=== PATIENT | female | born 1950 | race Two or more races ===

== ENCOUNTER 2017-09-01 10:34 | Emergency (ER) | payer OTHER ==
[~2017-09-01] VITALS: Ht 160 cm; Wt 83.0 kg
[~2017-09-01 10:34] MED LIST: CALTRATE-600/VI1 TA1; PHENABID D1 TAB.SR .; SIMVASTATIN40 MG; VITAMIN D50000 UNIT
[2017-09-01] MEDS ORDERED: NABUMETONE750 MG PO (15:20)
[2017-09-01] MEDS ORDERED: NORFLEX100MG PO (15:20)
== END 2017-09-01 15:36 | disposition home or self-care (01) ==
LOC: ER 10:34
DX: M79.662 Pain in left lower leg (principal); M25.562 Pain in left knee; M54.5 Low back pain

== ENCOUNTER → 2019-01-02 | Emergency (ER) | payer OTHER ==
[~2019-01-02] VITALS: Ht 160 cm; Wt 83.9 kg
[~2019-01-02] MED LIST changes: +NABUMETONE750 MG PO; +NORFLEX100MG; +NORFLEX100MG PO
== END | disposition home or self-care (01) ==
LOC: ER 15:05
DX: M54.89 Other dorsalgia (principal); M54.2 Cervicalgia

== ENCOUNTER 2020-01-13 10:23 | Emergency (ER) | payer OTHER ==
[~2020-01-13] VITALS: Ht 160 cm; Wt 85.7 kg
== END 2020-01-13 13:15 | disposition home or self-care (01) ==
LOC: ER 10:23
DX: M54.5 Low back pain (principal); M25.551 Pain in right hip

== ENCOUNTER 2020-11-10 08:50 | Emergency (ER) | payer OTHER ==
[~2020-11-10] VITALS: Ht 162.6 cm; Wt 81.6 kg
[2020-11-10] MEDS ORDERED: CIPRO500 MG PO (14:25)
[2020-11-10] MEDS ORDERED: NORFLEX100MG PO (14:25)
[2020-11-10] MEDS ORDERED: KETO10TA2 PO (14:25)
== END 2020-11-10 14:37 | disposition home or self-care (01) ==
LOC: ER 08:50
DX: B34.9 Viral infection, unspecified (principal); M54.5 Low back pain; M54.2 Cervicalgia; R07.89 Other chest pain; F41.8 Other specified anxiety disorders; Z20.822 Contact with and (suspected) exposure to COVID-19

== ENCOUNTER 2021-01-15 23:12 | Emergency (ER) | payer OTHER ==
[~2021-01-15] VITALS: Ht 160 cm; Wt 83.9 kg
[~2021-01-15 23:12] MED LIST changes: +CIPRO500 MG PO; +KETO10TA2 PO
== END 2021-01-16 02:38 | disposition home or self-care (01) ==
LOC: ER 23:12
DX: K08.89 Other specified disorders of teeth and supporting structures (principal)

== ENCOUNTER 2021-08-26 14:54 | Emergency (ER) | payer OTHER ==
[~2021-08-26] VITALS: Ht 162.6 cm; Wt 79.4 kg
[2021-08-26] MEDS ORDERED: SERTRALINE HCL50 MG PO (15:23)
[2021-08-26] MEDS ORDERED: ALPRAZOLAM0.5 MG PO (15:23)
[2021-08-26] MEDS ORDERED: ATORVASTATIN CA20 MG PO (15:23)
[2021-08-26] MEDS ORDERED: LEVOTHYROXINE25 MC1 PO (15:23)
[2021-08-26] MEDS ORDERED: ORPHENADRINE C100 MG PO (20:38)
[2021-08-26] MEDS ORDERED: DICLOFENAC POTA50 MG PO (20:38)
== END 2021-08-26 20:48 | disposition home or self-care (01) ==
LOC: ER 14:54
DX: M54.12 Radiculopathy, cervical region (principal); M25.511 Pain in right shoulder

== ENCOUNTER 2022-03-26 12:36 | Emergency (ER) | payer OTHER ==
[~2022-03-26] VITALS: Ht 160 cm; Wt 79.4 kg
[~2022-03-26 12:36] MED LIST changes: +ALPRAZOLAM0.5 MG PO; +ATORVASTATIN CA20 MG PO; +DICLOFENAC POTA50 MG PO; +LEVOTHYROXINE25 MC1 PO; +ORPHENADRINE C100 MG PO; +SERTRALINE HCL50 MG PO
== END 2022-03-26 16:53 | disposition home or self-care (01) ==
LOC: ER 12:36
DX: L02.411 Cutaneous abscess of right axilla (principal); Z88.0 Allergy status to penicillin; I10 Essential (primary) hypertension

== ENCOUNTER 2023-01-03 08:34 | Emergency (ER) | payer OTHER ==
[~2023-01-03] VITALS: Ht 162.6 cm; Wt 81.6 kg
[2023-01-03] MEDS ORDERED: ATORVASTATIN CA20 MG PO (08:55)
== END 2023-01-03 12:28 | disposition home or self-care (01) ==
LOC: ER 08:34
DX: B34.9 Viral infection, unspecified (principal); Z88.0 Allergy status to penicillin; E78.49 Other hyperlipidemia; M79.7 Fibromyalgia; Z20.822 Contact with and (suspected) exposure to COVID-19

== ENCOUNTER 2023-01-21 12:40 | Emergency (ER) | payer OTHER ==
[~2023-01-21] VITALS: Ht 157.5 cm; Wt 81.6 kg
== END 2023-01-21 17:44 | disposition home or self-care (01) ==
LOC: ER 12:40
DX: R05.9 Cough, unspecified (principal); Z88.0 Allergy status to penicillin

== ENCOUNTER 2023-11-04 09:29 | Outpatient (CLI) | payer OTHER | END 2023-11-04 09:37 | disposition home or self-care (01) | LOC: RAD 09:29 | PROVIDERS: ATTEND Internal Medicine Pulmonary Disease | DX: J45.30 Mild persistent asthma, uncomplicated (principal); R05.3 Chronic cough ==

== ENCOUNTER 2024-02-25 13:30 | Outpatient (CLI) | payer OTHER | END 2024-02-25 13:31 | disposition home or self-care (01) | LOC: NUCLEAR 13:30 | PROVIDERS: ATTEND Family Medicine Adult Medicine | DX: M81.0 Age-related osteoporosis without current pathological fracture (principal) ==

== ENCOUNTER 2024-05-03 09:12 | Emergency (ER) | payer OTHER ==
[~2024-05-03] VITALS: Ht 160 cm; Wt 74.4 kg
[2024-05-03] MEDS ORDERED: KETOROLAC TROMETHAMINE 60 MG VIAL IM ONE ×2 (11:29→11:30)
[2024-05-03] MEDS ORDERED: ORPHENADRINE CITRATE 30 MG/ML AMPUL ONE (11:29)
[2024-05-03] MEDS ORDERED: ORPHENADRINE CITRATE 30 MG/ML AMPUL IM ONE (11:30)
[2024-05-03] MEDS ORDERED: KETO10TA2 PO (14:40)
[2024-05-03] MEDS ORDERED: NORFLEX100MG PO (14:40)
== END 2024-05-03 15:39 | disposition home or self-care (01) ==
LOC: ER 09:13
DX: M75.32 Calcific tendinitis of left shoulder (principal); E78.00 Pure hypercholesterolemia, unspecified; M79.7 Fibromyalgia; Z88.0 Allergy status to penicillin; E03.8 Other specified hypothyroidism
CPT/HCPCS: 73030; 96372; 99283; J1885; J2360

== ENCOUNTER 2024-10-06 09:52 | Outpatient (CLI) | payer OTHER | END 2024-10-06 10:04 | disposition home or self-care (01) | LOC: RAD 09:52 | PROVIDERS: ATTEND Family Medicine Adult Medicine | DX: M22.2X2 Patellofemoral disorders, left knee (principal); M22.2X1 Patellofemoral disorders, right knee ==

== ENCOUNTER 2024-10-20 12:46 | Outpatient (CLI) | payer OTHER | END 2024-10-20 12:51 | disposition home or self-care (01) | LOC: RAD 12:46 | PROVIDERS: ATTEND Physical Medicine & Rehabilitation | DX: M54.50 Low back pain, unspecified (principal); M16.11 Unilateral primary osteoarthritis, right hip; M16.12 Unilateral primary osteoarthritis, left hip ==

== ENCOUNTER 2024-10-27 10:50 | Outpatient (CLI) | payer OTHER | END 2024-10-27 10:56 | disposition home or self-care (01) | LOC: RAD 10:50 | DX: S49.92XA Unspecified injury of left shoulder and upper arm, initial encounter (principal); X58.XXXA Exposure to other specified factors, initial encounter; Y93.9 Activity, unspecified; Y92.9 Unspecified place or not applicable; Y99.9 Unspecified external cause status ==

== ENCOUNTER 2025-02-03 07:03 | Outpatient (CLI) | payer OTHER | END 2025-02-03 07:05 | disposition home or self-care (01) | LOC: SONOGRAMA 07:03 | PROVIDERS: ATTEND Internal Medicine Nephrology | DX: N18.31 Chronic kidney disease, stage 3a (principal); N39.41 Urge incontinence ==

== ENCOUNTER 2025-03-12 12:40 | Emergency (ER) | payer OTHER ==
[~2025-03-12] VITALS: Ht 160 cm; Wt 78.9 kg
[2025-03-12 14:12] VITALS: BP 143/75; O2SAT 98
[2025-03-12] MEDS ORDERED: FAMOTIDINE/PF 20 MG/2 ML VIAL IV ONE (15:00)
[2025-03-12] MEDS ORDERED: MECLIZINE HCL 25 MG TABLET PO ONE ×2 (15:00→15:18)
[2025-03-12] MEDS ORDERED: FAMOTIDINE/PF 20 MG/2 ML VIAL ONE (15:18)
[2025-03-12 15:54] LABS: BASO % 0.2 % (0.1-1.2); EOS # 0.06 (0.04-0.54); EOS % 0.9 % (0.7-7.0); LYMPH # 1.51 (1.18-3.74); LYMPH % 23.7 % (19.3-53.1); MEAN PLATELET VOLUME 11.10 fl (9.4-12.4); MONO # 0.26 (0.24-0.82); MONO % 4.1 % (4.7-12.5); NEUT # 4.51 (1.56-6.13); NEUT % 70.8 % (34.0-71.1); RED CELL DISTRIBUTION WIDTH 13.9 % (11.6-14.4)
[2025-03-12 16:37] LABS: ALT/SGPT 27.0 U/L (12-78); AST/SGOT 19.0 U/L (15-37); BILIRUBIN TOTAL 0.51 mg/dL (0.3-1.2); BUN CREA RATIO 17.0 (7.0-25.0); CREATININE SERUM 0.86 mg/dL (0.55-1.02); GFR 64.15; GLOBULINA 3.5 G/DL (2.4-3.5); GLUCOSE FASTING 101.0 mg/dL (65-100); OSMOLALITY SERUM 292.0 MOSM/KG (275-295)
[2025-03-12] MEDS ORDERED: MOTION SICKNESS25 M1 PO (17:32)
== END 2025-03-12 17:44 ==
LOC: ER 12:40
PROVIDERS: General Practice
DX: R42 Dizziness and giddiness (principal); R11.10 Vomiting, unspecified; I10 Essential (primary) hypertension; Z88.0 Allergy status to penicillin
CPT/HCPCS: 36415; 93005; 96365; 99282; J3490